=== PATIENT | female | born 1945 | race Hispanic/Latino ===

== ENCOUNTER 2017-04-17 09:23 | Outpatient (CLI) | payer MEDICARE ==
--- NOTE | 2017-04-17 10:26 | Mammography Report ---
Screening mammogram: Routine views compared to prior exams in 2015. The overall fibroglandular pattern is that of intermediate density in a symmetric distribution. A focal unchanged asymmetry is identified in the lateral right breast. In the medial right breast however a small focal asymmetry seen on prior study also appears unchanged however almost contiguous and posterior to this small density is a large lobulated density in the posterior margin of which is not included on either CC or lateral projections. No calcifications are identified. The remainder the breast pattern bilaterally is unremarkable and unchanged. CAD used. Impression: Apparently new right breast density with otherwise stable exam compared to 2015. Recommendation: Additional compression imaging of the right breast and ultrasound. BI-RADS CATEGORY: 0 = Needs additional imaging evaluation ACR BI-RADS MAMMOGRAPHIC CODES: 0 = Needs additional imaging evaluation; 1 = Negative; 2 = Benign; 3 = Probably benign; 4 = Suspicious; 5 = Malignant; 6 = Known biopsy-proven malignancy COMMENT: 1. Dense breast tissue, i.e., adenosis, fibrocystic changes, etc., may obscure an underlying neoplasm. 2. Approximately 10% of cancers are not detected with mammography. 3. A negative mammography report should not delay biopsy if a clinically suspicious mass is present.
--- NOTE | 2017-04-17 13:33 | Ultrasound Report ---
RIGHT DIGITAL DIAGNOSTIC MAMMOGRAM : 04/17/17 09:23:00 CLINICAL: Abnormal screening mammogram. COMPARISON:04/17/17 screening FINDINGS: ML and spot compression CC views were performed. The inner posterior mass identified on the screening mammogram is not identified on these views. Satisfactory effacement of an outer asymmetry on the spot view. Ultrasound of the right breast (including all four quadrants and the retroareolar area) was performed. A solid heterogeneous hypoechoic mass with an irregular shape at 3 o'clock 9 cm from the nipple and near the chest wall measures 2.3 x 1.2 x 1.1 cm. No other mass is identified. Ultrasound of the right axilla demonstrated a single lymph node with a large fatty hilum measuring 0.9 x 0.7 x 1.5 cm. No suspicious lymph node. IMPRESSION: A suspicious 2.3 cm right breast mass.No suspicious lymph nodes. BI-RADS CATEGORY: 5 - - Highly Suggestive of Malignancy RECOMMENDATION: Ultrasound guided needle core biopsy of the right breast. I discussed the findings and the recommendation for needle core biopsy of the right breast with the patient at the time of the examination. ACR BI-RADS MAMMOGRAPHIC CODES: 0 = Needs additional imaging evaluation; 1 = Negative; 2 = Benign; 3 = Probably benign; 4 = Suspicious; 5 = Malignant; 6 = Known biopsy-proven malignancy COMMENT: 1. Dense breast tissue, i.e., adenosis, fibrocystic changes, etc., may obscure an underlying neoplasm. 2. Approximately 10% of cancers are not detected with mammography. 3. A negative mammography report should not delay biopsy if a clinically suspicious mass is present. COMMENT: Patient follow-up letters are generated via our [employer] application.
== END 2017-04-17 09:24 | disposition home or self-care (01) ==
LOC: SPVWC 09:23
PROVIDERS: ATTEND Surgery
DX: Z12.31 Encounter for screening mammogram for malignant neoplasm of breast (principal); N63.10 Unspecified lump in the right breast, unspecified quadrant
CPT/HCPCS: 76641; G0202; G0206; 77067

== ENCOUNTER 2017-05-29 06:04 | Day surgery (SDC) | payer MEDICARE ==
[2017-05-29] MEDS ORDERED: NACL BACTERIOSTATIC INFILTRATI ONE (06:54)
[2017-05-29] MEDS ORDERED: ANCEF/STERILE WATER 2 GM/20 ML IV NR (07:00)
[2017-05-29] MEDS ORDERED: LACTATED RINGERS 1,000 ML IV SCH (07:00)
[2017-05-29] MEDS ORDERED: ZOFRAN ONE (07:30)
[2017-05-29] MEDS ORDERED: TORADOL ONE (07:30)
[2017-05-29] MEDS ORDERED: DECADRON ONE (07:30)
[2017-05-29] MEDS ORDERED: XYLOCAINE MPF 2% ONE (07:30)
[2017-05-29] MEDS ORDERED: SUBLIMAZE ONE (07:30)
[2017-05-29] MEDS ORDERED: DIPRIVAN 10 MG/ML IV ONE (07:30)
[2017-05-29] MEDS ORDERED: PERCOCET 5/325 PO PRN (07:35)
[2017-05-29] MEDS ORDERED: MORPHINE IV PRN (07:35)
--- NOTE | 2017-05-29 07:36 | Anesthesia Day of Surgery ---
Anesthesia Day of Surgery - Day of Surgery Patient Examined: Yes Patient H&P Reviewed: Yes Patient is NPO: Yes Beta Blockers: Yes
--- NOTE | 2017-05-29 07:36 | Anesthesia Consultation ---
Anesthesia Consult and Med Hx Date of service: 05/29/17 - Airway Anesthetic Teeth Evaluation: Good ROM Head & Neck: Adequate Mental/Hyoid Distance: Adequate Mallampati Class: Class II Intubation Access Assessment: Probably Good - Pulmonary Exam CTA: Yes - Cardiac Exam Cardiac Exam: RRR - Pre-Operative Health Status ASA Pre-Surgery Classification: ASA2 Proposed Anesthetic Plan: General - Pulmonary Hx Smoking: No - Cardiovascular System Hx Hypertension: Yes - Endocrine Hx Non-Insulin Dependent Diabetes: No
[2017-05-29] MEDS ORDERED: MARCAINE 0.25% INFILTRATI ONE ×2 (07:40→07:53)
[2017-05-29] MEDS ORDERED: XYLOCAINE 1% 20 mL ONE (07:40)
[2017-05-29] MEDS ORDERED: WATER FOR IRRIG STERILE IR ONE (07:53)
[2017-05-29] MEDS ORDERED: XYLOCAINE 1% 20 mL INFILTRATI ONE (07:53)
[2017-05-29] MEDS ORDERED: PEPCID PO NR (08:00)
[2017-05-29] MEDS ORDERED: VERSED IV NR (08:00)
--- NOTE | 2017-05-29 08:52 | Short Stay Summary ---
Short Stay Documentation Date of service: 05/29/17 - History H&P: obtained from office - Allergies and Medications Current Medications: Allergies codeine Adverse Reaction (Verified 05/29/17 06:33) Unknown PT STATES RAPID HEARTBEAT hydromorphone [From Dilaudid] Adverse Reaction (Verified 05/29/17 06:33) Unknown PT STATES "IT PUT ME IN ANOTHER WORLD" Home Medications Medication Instructions Recorded Confirmed Last Taken Type Ibuprofen 800 mg PO Q8HR PRN #30 tablet 05/29/17 Unknown Rx Propranolol [Inderal] 20 mg PO ONCE 05/29/17 05/29/17 05/28/17 History Valsartan/Hydrochlorothiazide 1 tab PO QDAY 05/29/17 05/29/17 05/28/17 History [Diovan Hct 160-12.5 mg] Active Medications Cefazolin Sodium (Ancef/Sterile Water 2 Gm/20 Ml) 2 gm IV PREOP NR Stop: 05/29/17 12:00 Famotidine (Pepcid) 20 mg PO PREOP NR Stop: 05/29/17 09:00 Last Admin: 05/29/17 07:45 Dose: 20 mg Lactated Ringer's (Lactated Ringers) 1,000 mls @ 75 mls/hr IV DIRECT SINDHU Last Admin: 05/29/17 07:05 Dose: 75 mls/hr Midazolam HCl (Versed) 2 mg IV PREOP NR Stop: 05/29/17 23:59 Last Admin: 05/29/17 07:50 Dose: 2 mg Morphine Sulfate (Morphine) 2 mg IV Q10MIN PRN PRN Reason: Pain, Moderate (4-6) Oxycodone/Acetaminophen (Percocet 5/325) 1 tab PO ONCE PRN PRN Reason: Pain, Moderate (4-6) - Brief post op/procedure progress note Date of procedure: 05/29/17 Pre-op diagnosis: Right breast atypical papillary lesion of the upper inner quadrant Post-op diagnosis: same Procedure: Right breast excisional biopsy of atypical papillary lesion of the upper outer quadrant Anesthesia: GETA Findings: Right breast mass with clip present within radiograph specimen Surgeon: GERSON ROSENTHAL Medicine Teacher: AXEL DUCKWORTH Estimated blood loss: minimal Pathology: list (right breast excisional biopsy) Specimen disposition: to lab Condition: stable - Disposition Condition at discharge: Good Disposition: DC-01 TO HOME OR SELFCARE Short Stay Discharge Plan Activity: other (no heavy lifting) Diet: regular Wound: other (keep incision clean and dry and may shower in 24 hours; no baths, pools or lakes; do not rub or scrub incision) Follow up with: LIZZY MCKINNON JR, MD [Primary Care Provider] - 7 Days GERSON ROSENTHAL MD [Staff Physician] - 7 Days Prescriptions: Ibuprofen 800 mg PO Q8HR PRN #30 tablet PRN Reason: Pain
--- NOTE | 2017-05-29 09:04 | Operative Report ---
Operative Report Operative Report: Date of Service: May 29, 2017 Preoperative diagnosis: Right breast atypical papillary lesion of the upper inner quadrant Postoperative diagnosis: Same Procedure: Right breast ultrasound guided excisional biopsy of atypical papillary lesion Surgeon: Frida Zamarripa M.D. Asst.: Elaine Medina MD Anesthesia: Gen. Findings: Radiographic specimen with clip and mass present Complications: None Drains: None Estimated blood loss: Minimal. Disposition: PACU in good condition Procedure in detail: This is a 72-year-old lady who recently underwent ultrasound-guided needle core biopsy of a suspicious lesion at the 3 o'clock position 8-9 cm from the nipplthe above procedure. Procedure in detail: Patient was taken to the operating room and was laid supine. Gen. anesthesia was administered. The right breast was prepped and draped in the normal sterile operative fashion. The area of concern was identified which was palpable and also noted on ultrasound for appropriate incision markings. Timeout was performed. A skin incision was made with a 15 blade knife with dissection taken down to the subcutaneous tissues. First began with raising of the superior flap taken down posteriorly to pectoralis muscle followed by raising of the medial flap, inferior flap and lateral flap taken down posteriorly to the pectoralis muslce. The specimen was removed grom the pectoralis muscle with the aid of Bovie cautery. Breast specimen was marked and sent to radiology and then pathology. Radiograph specimen with mass and clip present. Hemostasis was obtained with the aid of the bovie cautery. Breast cavity was anesthetized with 1% lidocaine with quarter percent Marcaine. The subcutaneous tissues were approximated and closed using interrupted 3-0 Vicryl and the skin was brought together and closed using a running 4-0 Monocryl followed by skin affix. She tolerated surgery very well and was awakened from anesthesia without any complication and transferred to PACU in good condition.
--- NOTE | 2017-05-29 09:29 | Post Anesthesia Evaluation ---
- Post Anesthesia Evaluation Patient Participated: Yes Airway Patent: Yes Stable Respiratory Function: Yes Nausea/Vomiting: No Temp > 96.8F: Yes Pain Manageable: Yes Adequeate Hydration: Yes Anesthesia Complications: No Block Receding Appropriately: Not Applicable Patient on Ventilator: No
[2017-05-29] MEDS ORDERED: DEMEROL IV PRN (09:40)
[2017-05-29] MEDS ORDERED: DEMEROL ONE (09:41)
--- NOTE | 2017-05-29 11:53 | Mammography Report ---
SPECIMEN RADIOGRAPH RIGHT BREAST: 05/29/17 06:04:00 CLINICAL: Surgical excision of known cancer. FINDINGS: The targeted mass with a biopsy clip is identified within the specimen. IMPRESSION: Excision of the targeted lesion.
[2017-05-29 13:11] VITALS: BP 137/68
== END 2017-05-29 11:45 | disposition home or self-care (01) ==
LOC: OR 06:04
PROVIDERS: ATTEND Surgery
DX: N63.12 Unspecified lump in the right breast, upper inner quadrant (principal); I10 Essential (primary) hypertension; Z90.710 Acquired absence of both cervix and uterus; Z98.890 Other specified postprocedural states; M19.90 Unspecified osteoarthritis, unspecified site; Z88.5 Allergy status to narcotic agent; Z88.8 Allergy status to other drugs, medicaments and biological substances; E78.00 Pure hypercholesterolemia, unspecified
CPT/HCPCS: 19125; 36415; 76098; 84132; 88307; 88342; J0690; J1100; J1885; J2175; J2250; J2270; J2405; J2704; J3010; J7120; 88341; 88361

== ENCOUNTER 2017-11-05 08:22 | Outpatient (CLI) | payer MEDICARE ==
--- NOTE | 2017-11-05 09:06 | Mammography Report ---
RIGHT DIGITAL DIAGNOSTIC MAMMOGRAM WITH CAD: 11/05/17 08:22:00 CLINICAL: Breast cancer survivor status post right partial mastectomy. No radiation therapy. COMPARISON:04/26/17 FINDINGS: The breast is mostly fatty. Mild lower inner postsurgical scar. No mass, suspicious architectural distortion or suspicious calcifications. IMPRESSION: No mammographic evidence of malignancy.Benign postsurgical changes. BI-RADS CATEGORY: 2 -- Benign RECOMMENDATION: Routine mammographic screening. ACR BI-RADS MAMMOGRAPHIC CODES: 0 = Needs additional imaging evaluation; 1 = Negative; 2 = Benign; 3 = Probably benign; 4 = Suspicious; 5 = Malignant; 6 = Known biopsy-proven malignancy COMMENT: 1. Dense breast tissue, i.e., adenosis, fibrocystic changes, etc., may obscure an underlying neoplasm. 2. Approximately 10% of cancers are not detected with mammography. 3. A negative mammography report should not delay biopsy if a clinically suspicious mass is present. COMMENT: Patient follow-up letters are generated via our [employer] application.
== END 2017-11-05 08:23 | disposition home or self-care (01) ==
LOC: SPVWC 08:22
PROVIDERS: ATTEND Surgery
DX: R92.8 Other abnormal and inconclusive findings on diagnostic imaging of breast (principal); Z85.3 Personal history of malignant neoplasm of breast; Z90.11 Acquired absence of right breast and nipple; Z98.890 Other specified postprocedural states

== ENCOUNTER 2018-10-28 08:11 | Outpatient (CLI) | payer MEDICARE ==
--- NOTE | 2018-10-28 08:45 | Mammography Report ---
RIGHT DIGITAL DIAGNOSTIC MAMMOGRAM with CAD 10/28/18 08:11:00 CLINICAL: Personal history of breast cancer status post right partial mastectomy and radiation therapy. COMPARISON:03/26/18 FINDINGS: The breast is mostly fatty with a few residual fibroglandular densities.. Stable lower inner postsurgical scar.No mass, suspicious architectural distortion or suspicious calcifications. IMPRESSION: No mammographic evidence of malignancy. BI-RADS CATEGORY: 2 - - Benign RECOMMENDATION: Routine mammographic screening in one year. COMMENT: 1. Dense breast tissue, i.e., adenosis, fibrocystic changes, etc., may obscure an underlying neoplasm. 2. Approximately 10% of cancers are not detected with mammography. 3. A negative mammography report should not delay biopsy if a clinically suspicious mass is present. COMMENT: Patient follow-up letters are generated by our [employer] application.
== END 2018-10-28 08:12 | disposition home or self-care (01) ==
LOC: SPVWC 08:11
PROVIDERS: ATTEND Surgery
DX: R92.8 Other abnormal and inconclusive findings on diagnostic imaging of breast (principal); I10 Essential (primary) hypertension; Z90.710 Acquired absence of both cervix and uterus; Z85.3 Personal history of malignant neoplasm of breast

== ENCOUNTER 2019-04-28 08:20 | Outpatient (CLI) | payer MEDICARE ==
--- NOTE | 2019-04-28 09:07 | Mammography Report ---
DIGITAL SCREENING MAMMOGRAM WITH CAD, 04/28/2019 INDICATION: Routine screening mammography. Personal history of right breast cancer status post partia l mastectomy and radiation therapy. TECHNIQUE: Digital bilateral 2D mammography was obtained in the craniocaudal and mediolateral obliq ue projections. This examination was interpreted with the benefit of Computer-Aided Detection analysi s. COMPARISON: 10/28/2018, 04/22/2018 and 04/26/2017 FINDINGS: Breast Density: There are scattered areas of fibroglandular density. There is no evidence of dominant mass, suspicious calcifications or architectural distortion in eithe r breast. IMPRESSION: No mammographic evidence of malignancy. Follow up recommendation: Routine yearly BI-RADS Category 2: Benign. A "normal" or negative report should not discourage follow up or biopsy of a clinically significant f inding. A written summary of these findings will be mailed to the patient. The patient will be entered into a mammography reporting system which will generate a reminder letter for the patient's next appointmen t at the appropriate interval. The [employer] recommends yearly mammograms starting at age 40 and continuing as l pat as a woman is in good health. Breast MRI is recommended for women with an approximate 20-25% or greater lifetime risk of breast cancer, including women with a strong family history of breast or ova oj cancer or who have been treated for Hodgkin's disease. Signer Name: Pranav Silva MD Signed: 04/28/2019 9:03 AM Workstation Name: [id number]
== END 2019-04-28 08:21 | disposition home or self-care (01) ==
LOC: SPVWC 08:20
PROVIDERS: ATTEND Surgery
DX: Z12.31 Encounter for screening mammogram for malignant neoplasm of breast (principal)
CPT/HCPCS: 77067

== ENCOUNTER 2020-06-02 08:27 | Outpatient (CLI) | payer MEDICARE ==
--- NOTE | 2020-06-02 09:12 | Mammography Report ---
DIGITAL SCREENING MAMMOGRAM WITH CAD, 06/02/2020 CLINICAL INFORMATION / INDICATION: Routine screening mammography. TECHNIQUE: Digital bilateral 2D mammography was obtained in the craniocaudal and mediolateral obliqu e projections. This examination was interpreted with the benefit of Computer-Aided Detection analysis . COMPARISON: 04/28/2019, 10/28/2018, 04/22/2018 FINDINGS: Breast Density: There are scattered areas of fibroglandular density. No dominant mass, suspicious calcifications, or architectural distortion in either breast. IMPRESSION: No mammographic evidence of malignancy. Follow up recommendation: Routine yearly BI-RADS Category 1: Negative. A "normal" or negative report should not discourage follow up or biopsy of a clinically significant f inding. A written summary of these findings will be mailed to the patient. The patient will be entered into a mammography reporting system which will generate a reminder letter for the patient's next appointmen t at the appropriate interval. The [employer] recommends yearly mammograms starting at age 40 and continuing as l pat as a woman is in good health. Breast MRI is recommended for women with an approximate 20-25% or greater lifetime risk of breast cancer, including women with a strong family history of breast or ova oj cancer or who have been treated for Hodgkin's disease. Signer Name: Bryant Valera MD Signed: 06/02/2020 9:07 AM Workstation Name: [id number]
== END 2020-06-02 08:28 | disposition home or self-care (01) ==
LOC: SPVWC 08:27
PROVIDERS: ATTEND Surgery
DX: Z12.31 Encounter for screening mammogram for malignant neoplasm of breast (principal)
CPT/HCPCS: 77067